=== PATIENT | female | born 1945 | race Caucasian/White ===

== ENCOUNTER 2016-07-21 10:23 | Outpatient (CLI) | payer MEDICARE, BC | END 2016-07-21 10:24 | disposition home or self-care (01) | DX: Z71.3 Dietary counseling and surveillance (principal); R73.01 Impaired fasting glucose; E78.6 Lipoprotein deficiency; Z68.37 Body mass index [BMI] 37.0-37.9, adult ==

== ENCOUNTER 2016-09-26 08:24 | Emergency (ER) | payer MEDICARE, BC ==
[2016-09-26] MEDS ORDERED: SODIUM CHLORIDE 0.9% 1,000 ML IV ONE (09:33)
[2016-09-26] MEDS ORDERED: MECLIZINE 12.5 MG TABLET PO STA (09:33)
[2016-09-26] MEDS ORDERED: MECLIZINE 12.5 MG TABLET PO ONE (09:34)
== END 2016-09-26 10:56 | disposition home or self-care (01) ==
DX: R42 Dizziness and giddiness (principal); I10 Essential (primary) hypertension; E78.00 Pure hypercholesterolemia, unspecified; J44.9 Chronic obstructive pulmonary disease, unspecified; K21.9 Gastro-esophageal reflux disease without esophagitis
CPT/HCPCS: 36415; 80053; 81003; 83690; 85025; 93005; 93010; 96360; 99283; 99284; A9270

== ENCOUNTER 2016-10-25 11:29 | Outpatient (CLI) | payer MEDICARE, BC | END 2016-10-25 11:30 | disposition home or self-care (01) | DX: R42 Dizziness and giddiness (principal) ==

== ENCOUNTER 2016-11-07 07:42 | Outpatient (CLI) | payer MEDICARE, BC ==
[2016-11-07] MEDS ORDERED: GADOBUTROL 10 MMOL/10 ML VIAL IVP ONE (08:33)
--- NOTE | 2016-11-07 10:07 | MRI Report ---
EXAM: MRI BRAIN AND INTERNAL AUDITORY CANAL (IAC) EXAM DATE: 11/07/2016 08:40 AM. CLINICAL HISTORY: DIZZINESS,ASYMETRIC HEARING LOSS. Hearing loss in the right ear. COMPARISON: MRI brain 05/18/2015 TECHNIQUE: Multiplanar, multisequence T1-weighted and fluid-sensitive MRA sequences of the brain and IACs were performed. Other: None. IV Contrast: Without and with. 10 mL Gadavist FINDINGS: Brain Volume: Normal for age. Parenchyma/Dura: No masses, acute or subacute infarcts, or hemorrhage. Moderate scattered T2/FLAIR hy perintense periventricular, deep, and subcortical white matter lesions within cerebral hemispheres bi laterally. No abnormal parenchymal enhancement. Internal Auditory Canals (IACs): Normal. No cranial nerve lesion or inflammatory process identified. The cerebellopontine angles bilaterally, the internal auditory canals bilaterally, the cochleas bilat erally, and the vestibular apparatuses bilaterally are unremarkable. No associated abnormal enhanceme nt. Ventricles/Cisterns: Normal. No hydrocephalus. Sinuses: There is a mucous retention cyst/polyp within the posterior right ethmoid air cells, this is similar to prior study. The paranasal sinuses are otherwise clear. Bones: Normal. Other: The sella is expanded, with a partially empty sella appearance. This is similar to prior study . IMPRESSION: 1. No evidence of retrocochlear pathology. The cerebellopontine angles bilaterally, the internal bc tory canals bilaterally, the cochleas bilaterally, and the vestibular apparatuses bilaterally are unr emarkable. No associated abnormal enhancement. 2. No evidence of intracranial mass, acute or subacute infarct, hemorrhage, midline shift, or hydroce phalus. 3. Moderate scattered T2/FLAIR hyperintense periventricular, deep, and subcortical white matter lesio ns within cerebral hemispheres bilaterally. 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 [facility] Referring Provider Line: [phone] SITE ID: [id number]
== END 2016-11-07 07:43 | disposition home or self-care (01) ==
LOC: DI 07:42
PROVIDERS: ATTEND Otolaryngology
DX: R42 Dizziness and giddiness (principal); H91.8X9 Other specified hearing loss, unspecified ear
CPT/HCPCS: 70543; A9585

== ENCOUNTER 2018-08-16 12:34 | Outpatient (CLI) | payer MEDICARE, BC | END 2018-08-16 12:35 | disposition EMS.NT | LOC: EMS 12:34 | PROVIDERS: ATTEND Surgery | DX: F41.9 Anxiety disorder, unspecified (principal) ==

== ENCOUNTER 2019-01-03 08:12 | Outpatient (CLI) | payer MEDICARE, BC ==
--- NOTE | 2019-01-03 11:18 | XRAY Report ---
Reason: ACUTE ON CHRONIC L KNEE PAIN Procedure Date: 01/03/2019 Accession Number: [id number] / [id number] Procedure: XRN - Knee 3 View LT CPT Code: FULL RESULT: EXAM: LEFT KNEE RADIOGRAPHY EXAM DATE: 01/03/2019 10:49 AM. CLINICAL HISTORY: [id number] left knee pain. COMPARISON: None. TECHNIQUE: 3 views. FINDINGS: Bones: Mild suprapatellar enthesopathy. No fractures or bone lesions. Joints: Mild tricompartmental osteoarthrosis with marginal osteophytosis and joint space narrowing in the lateral patellar compartment and medial weightbearing compartment. Trace effusion. No subluxations. Soft Tissues: Normal. No soft tissue swelling. IMPRESSION: Tricompartmental osteoarthrosis, mild with trace effusion. [facility]
== END 2019-01-03 08:13 | disposition home or self-care (01) ==
LOC: DI.N 08:12
PROVIDERS: ATTEND Family Medicine
DX: M17.12 Unilateral primary osteoarthritis, left knee (principal)

== ENCOUNTER → 2022-05-16 | Outpatient (CLI) | payer MEDICARE, BC | END | disposition short-term general hospital (02) | LOC: EMS 22:19 | DX: M54.50 Low back pain, unspecified (principal); W00.0XXA Fall on same level due to ice and snow, initial encounter; Y92.009 Unspecified place in unspecified non-institutional (private) residence as the place of occurrence of the external cause | CPT/HCPCS: A0425; A0429 ==

== ENCOUNTER 2022-07-31 12:30 | Outpatient (CLI) | payer MEDICARE, BC ==
[2022-07-31 12:51] LABS: CREATININE 0.8 mg/dL (0.4-1.0)
[2022-07-31] MEDS ORDERED: iohexoL-300 100 ML VIAL ONE (13:25)
[2022-07-31] MEDS ORDERED: iohexoL-300 100 ML VIAL IVP ONE (15:26)
--- NOTE | 2022-07-31 17:59 | CT Report ---
PROCEDURE: ANGIO HEAD W/WO INDICATIONS: CEREBRAL ANEURYSM CONTRAST: 80ml Omnipaque 300 TECHNIQUE: Precontrast 4.5 mm thick angled axial sections acquired from the foramen magnum to the vertex. Afte r the administration of intravenous contrast, 1 mm thick sections acquired through the [place] of [place] is. Postcontrast 4.5 mm thick sections then re-acquired from the foramen magnum to the vertex. 3-di mensional xcrmmbp-xajfbgamv-whmqubimzb (MIP) and/or volume rendering reformats were acquired of the c entral intracranial vasculature. For radiation dose reduction, the following was used: automated ex posure control, adjustment of mA and/or kV according to patient size. COMPARISON: Correlation is made with prior brain MRI and MR angiogram, 05/18/2015 and prior brain MRI IAC protocol, 11/04/2016. FINDINGS: Image quality: There is streak artifact seen through the skull base. Anterior circulation: Intracranial internal carotid arteries are normal in size and flow. The flow within the paired anterior cerebral arteries is normal and symmetric. The flow within the middle cer ebral arteries is normal and symmetric. The anterior communicating artery is seen. No aneurysms are seen. Posterior circulation: Visualized portions of the vertebral arteries demonstrate normal caliber, and join to form a normal appearing basilar artery. Flow within the posterior cerebral arteries is norm al and symmetric. No aneurysms are seen. CSF spaces: Ventricles are normal in size and shape. Basal cisterns are patent. No extra-axial flu id collections. Brain: No midline shift. No intracranial bleeds or masses. Ponce-white matter interface appears int act. Skull and face: Calvarium and facial bones appear intact, without suspicious lesions. An "empty neisha la" is seen, which is filled with fluid density. This is not frankly pathologic. Sinuses: Moderate mucosal thickening is seen within the posterior right ethmoid air cells. The parana antonio sinuses are otherwise unremarkable. No significant abnormal fluid can be seen within the mastoid air cells. IMPRESSION: No significant intracranial arterial abnormalities are seen. No aneurysms are seen. Additional findings: "Empty sella," stable. Focal right posterior ethmoid sinus disease, as before Reviewed by: Darell Peña MD on 07/31/2022 4:57 PM [facility] Approved by: Darell Peña MD on 07/31/2022 4:57 PM [facility] Station ID: [id number]
== END 2022-07-31 12:31 | disposition home or self-care (01) ==
LOC: LAB 12:30
PROVIDERS: ATTEND Internal Medicine
DX: I67.1 Cerebral aneurysm, nonruptured (principal); R68.89 Other general symptoms and signs; J32.2 Chronic ethmoidal sinusitis
CPT/HCPCS: 36415; 70496; 82565; Q9967

== ENCOUNTER 2022-12-26 19:42 | Outpatient (CLI) | payer MEDICARE, BC | END 2022-12-26 19:43 | disposition short-term general hospital (02) | LOC: EMS 19:42 | DX: R53.81 Other malaise (principal); R20.2 Paresthesia of skin; R11.2 Nausea with vomiting, unspecified; R25.1 Tremor, unspecified | CPT/HCPCS: A0425; A0427 ==

== ENCOUNTER 2023-11-04 10:14 | Emergency (ER) | payer MEDICARE, BC ==
--- NOTE | 2023-11-04 10:37 | ED Physician Documentation ---
PD HPI UPPER EXT INJURY - Stated complaint Stated Complaint: HAND INJURIES - Chief complaint Chief Complaint: Trauma Ext - History obtained from History obtained from: Patient - History of Present Illness Location: Both - Additonal information Additional information: She was closing the hideabed at her daughter's house and her hands got stuck in the mechanism. She has mild pain of the dorsum of both hands. She is up-to-date on tetanus. What she really wonders is, she has contusions of both hands with some swelling especially of the dorsum of the left hand and wonders if it can be drained. This happened just prior to arrival. 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 : None HEENT: Macular degeneration Psych: Anxiety Musculoskeletal: Other Derm: None - Past Surgical History Past Surgical History: Yes General: Colonoscopy /TERRAZZO FINISHER: Hysterectomy - Present Medications Home Medications: Ambulatory Orders Medication Instructions Recorded Confirmed Esomeprazole Magnesium [Nexium 20 mg PO DAILY 05/06/14 09/26/16 24Hr] Lovastatin [Altoprev] 40 mg PO DAILY 05/06/14 09/26/16 Meloxicam 15 mg PO DAILY 05/06/14 09/26/16 Multivitamin [Multivitamins] 1 tab PO DAILY 05/06/14 09/26/16 oxyBUTYnin chloride [Ditropan Xl] 10 mg PO DAILY 05/06/14 09/26/16 Fluoxetine HCl 10 mg PO DAILY 11/20/14 09/26/16 bisacodyL [Dulcolax] 5 mg PO .FREQ 11/20/14 09/26/16 metroNIDAZOLE 0.75% GEL [Flagyl 0 mg TOP .FREQ 11/20/14 09/26/16 Gel] Meclizine [Antivert] 25 mg PO Q6H PRN #30 tablet 04/18/16 09/26/16 Irbesartan 0 mg PO .FREQ 09/26/16 09/26/16 - Allergies Allergies/Adverse Reactions: Allergies Allergy/AdvReac Type Severity Reaction Status Date / Time erythromycin base AdvReac Nausea Verified 11/04/23 10:33 [Erythromycin Base] morphine AdvReac Nausea Verified 11/04/23 10:33 - Social History Does the pt smoke?: No Smoking Status: Never smoker Does the pt drink ETOH?: No Does the pt have substance abuse?: No - Immunizations Immunizations are current?: Yes - POLST Patient has POLST: No PD ED PE NORMAL - Vitals Vital signs reviewed: Yes - General General: Alert and oriented X 3, No acute distress - Extremities Extremities: Other (She is bruising and swelling of the dorsum of both hands, left is larger than the right. There is no bony tenderness and she has full range of motion. There are overlying abrasions.) - Neuro Neuro: Alert and oriented X 3, Normal speech Results - Vitals Vitals: Vital Signs - 24 hr 11/04/23 10:30 Temperature 36.0 C L Heart Rate 83 Respiratory 20 Rate Blood Pressure 182/146 H O2 Saturation 97 Oxygen O2 Source Room air PD Medical Decision Making - ED course ED course: I offered x-rays, but she does not think she is broken. I agree they would probably be low yield. Her main concern was that she wondered if the hematoma on the dorsum of the left hand could be drained. I discussed with her that the risks probably outweigh the benefits there and best to treated conservatively. Departure - Departure Disposition: 01 Home, Self Care Clinical Impression: Contusion of right hand Qualifiers: Encounter type: initial encounter Qualified Code(s): S60.221A - Contusion of right hand, initial encounter Contusion of left hand Qualifiers: Encounter type: initial encounter Qualified Code(s): S60.222A - Contusion of left hand, initial encounter Condition: Good Record reviewed to determine appropriate education?: Yes Instructions: ED Contusion Hand Comments: As discussed, you can ice and elevate you could also apply loose wraps to keep the swelling down. I do expect significant bruising and discoloration of both hands that may last several weeks. I do not recommend attempts at drainage of the hematomas as that would put you at increased risk of infection and may not be effective in the first place as the blood may just come right back. Follow- up with your doctor in a week if not improving. Return for new or worsening symptoms. Forms: PCP List Discharge Date/Time: 11/04/23 10:49
[2023-11-04 10:42] VITALS: BP 182/146; O2SAT 97
== END 2023-11-04 10:49 | disposition home or self-care (01) ==
LOC: ED 10:14
DX: S60.222A Contusion of left hand, initial encounter (principal); S60.221A Contusion of right hand, initial encounter; S60.512A Abrasion of left hand, initial encounter; S60.511A Abrasion of right hand, initial encounter; W23.1XXA Caught, crushed, jammed, or pinched between stationary objects, initial encounter; Y93.E9 Activity, other interior property and clothing maintenance; Y92.009 Unspecified place in unspecified non-institutional (private) residence as the place of occurrence of the external cause
CPT/HCPCS: 99282; 99283